=== PATIENT | female | born 1945 | race Caucasian/White ===

== ENCOUNTER 2023-08-28 12:40 | Emergency (ER) | payer OTHER ==
[~2023-08-28] VITALS: Ht 170.2 cm; Wt 77.3 kg
[2023-08-28 13:02] VITALS: O2SAT 98
[2023-08-28 13:43] LABS: Basophils # (auto) 0.1 10 ^3/uL (0-0.2); Basophils % (auto) 0.6 % (0.0-2.0); Eosinophils # (auto) 0 10 ^3/uL (0-0.8); Hematocrit 44.2 % (36.0-46.0); Hemoglobin 14.4 g/dL (12.2-16.2); Lymphocytes % (auto) 11.2 % (10.0-50.0); Mean Corpuscular Hemoglobin 28.5 pg (28.0-32.0); Mean Corpuscular Hgb Conc. 32.6 g/dL (32.0-36.0); Mean Corpuscular Volume 87.4 fL (80.0-100.0); Monocytes % (auto) 11.4 % (0.0-12.0); Neutrophils % (auto) 76.8 % (37.0-80.0); Nucleated Red Blood Cells % 0.3 %; Red Blood Cells 5.05 10^6/uL (4.0-5.20); Red Cell Distribution Width 15.3 % (11.8-14.3); White Blood Cell 9.1 10^3/uL (4.4-10.8)
[2023-08-28 14:02] LABS: Alanine Aminotransferase 13 U/L (7-40); Albumin 4.3 g/dL (3.2-4.8); Alkaline Phosphatase 101 U/L (46-116); Anion Gap 13 (5-15); Aspartate Aminotransferase 22 U/L (13-40); BUN/Creatinine Ratio 16.3 (10.0-20.0); Bilirubin, Total 0.6 mg/dL (0.2-1.0); Blood Urea Nitrogen 30 mg/dL (9-23); Calcium 9.6 mg/dL (8.5-10.1); Carbon Dioxide 21 mmol/L (20-30); Chloride 104 mmol/L (98-107); Glucose 96 mg/dL (74-106); Potassium 3.8 mmol/L (3.5-5.1); Sodium 138 mmol/L (136-145); Total Protein 6.6 g/dL (5.7-8.2)
[2023-08-28] MEDS: ALBUTEROL SULF 2.5 MG/0.5ML(0.5%) NEB SOLN ONE (14:20)
[2023-08-28] MEDS: IPRATROPIUM BROM 0.5 MG/2.5ML INH SOL ONE (14:21)
[2023-08-28] MEDS: IPRATROPIUM BROM 0.5 MG/2.5ML INH SOL NEB ONE (14:23)
[2023-08-28] MEDS: ALBUTEROL SULF 2.5 MG/0.5ML(0.5%) NEB SOLN NEB ONE (14:24)
[2023-08-28] MEDS: FUROSEMIDE 20 MG/2 ML VIAL IV ONE (14:33)
[2023-08-28] MEDS: methylPREDNISolone SOD SUCC 125 MG/2 ML VL IV ONE (14:33)
[2023-08-28 14:46] LABS: INR 3.25 (0.9-1.15); Partial Thromboplastin Time 52.6 SEC (24.5-34.5); Prothrombin Time 31.6 sec (9.3-11.8)
[2023-08-28 15:21] LABS: Rapid Influenza A Negative (Negative); Rapid Influenza B Negative (Negative)
[2023-08-28 15:22] LABS: COVID19 ANTIGEN SOFIA FIA NEGATIVE (NEGATIVE)
[2023-08-28 19:00] VITALS: BP 153/90; PULSE 80; RESP 25; TEMP 98.1; O2SAT 89
== END 2023-08-28 19:39 | disposition short-term general hospital (02) ==
LOC: ER 12:40 → EDBD 12:40 → ER 19:39
DX: R09.02 Hypoxemia (principal); R07.89 Other chest pain; K92.1 Melena; R79.89 Other specified abnormal findings of blood chemistry; Z20.822 Contact with and (suspected) exposure to COVID-19
CPT/HCPCS: 36415; 71045; 80053; 83605; 83880; 84484; 85025; 85610; 85730; 87426; 87804; 93005; 94640; 96374; 96375; 99285; J1940; J2930; J7644